=== PATIENT | male | born 1990 | race Caucasian/White ===

== ENCOUNTER 2016-02-01 00:01 | Inpatient (IN) | payer SELFPAY ==
[~2016-02-01] VITALS: Ht 170.2 cm; Wt 77.0 kg
--- NOTE | 2016-02-02 15:15 | NUR ---
NOTED GREEN, BILE LIKE, SUBSTANCE NOTED ON TOWEL AND PILLOW TO PT R SIDE. PT ROLLED TO R SIDE. PT BREATH SOUNDS COARSE. RESPITATIONS SHALLOW AND UNLABORED. PT VERY RELAXED AND ABLE TO MOVE EXTREMITIES WITHOUT ANY RESISTANCE NOTED.
--- NOTE | 2016-02-02 18:47 | NUR ---
1835 PT HAD ANOTHER EMESIS OF GREEN BILE ON TOWEL, CALL TO DR. SARKAR PAIN COORDINATOR FOR DR. Wali LARA. INFORMED OF EMESIS X 4, BILE APPEARANCE AND BILE SUCTIONED FROM TRACHE. REVIEWED CHANGES MADE 02/01/[address] SARKAR INSTRUCTED RN TO HOLD TF FOR 6 HR AFTER PRN REGLAN GIVEN, GIVE PRN REGLAN Q 8 HR PRN FOR EMESIS AND CALL [employer] ON THURSDAY TO REPORT PT CONDITION.
--- NOTE | 2016-02-02 18:51 | NUR ---
WITH ROUNDING AT 1745 PT NOTED TO HAVE VOMITED GREEN LIQUID AGAIN. TUBE FEEDING PUT ON HOLD. WITH TURNING OF PT HE WOULD VOMIT AGAIN. ATTEMPTED TO CLEAN MOUTH. PT COUGHED AND GREEN LIQUID CAME FROM TRACH. SUCTIONED AND TRACH CARES DONE.
--- NOTE | 2016-02-02 22:34 | NUR ---
2200; pt continues to have emesis of green bile appearing liquid. Suctioned x 2 light green mucus, Temp 99.2 A; small amount of yellow fluid from J tube site; Meds given; TF remains off per MD orders.
--- NOTE | 2016-02-03 02:16 | NUR ---
TF RESTARTED TF; NO EMESIS X 1 HOUR;
--- NOTE | 2016-02-06 23:02 | NUR ---
PT HAD COPIOUS AMOUNT OF WHITE FOAMY SECRETIONS, CONTINUES TO RUN FROM MOUTH AFTER SUCTIONING. GAVE ATROPINE DROPS AFTER ORAL CARES. SKIN ACROSS CHEST RED/RAISED BUMPS. NOTED A 4" X 2" RED BASSAM ON INNER ASPECT OF RIGHT LEG, AND RED LINES OF IRRITATION TO THE SKIN WITH A CIRCULAR RED AREA INNER ASPECT OF LEFT LEG.
--- NOTE | 2016-02-07 14:46 | NUR ---
I was notified by Ingrid Mckinley RN on the night guard that there was a red eh to the inner aspect of Dino's right leg and red lines of irritation to the skin with a circular red area on the inner aspect of the left leg. Ingrid reported that she thought it looked like a eh from the genoveva lift sling. I checked the area this morning and did not find any redness or lyn to either leg. Will continue to monitor the legs for s/s of sling difficulties.
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
--- NOTE | 2016-03-16 20:29 | NUR ---
COPIOUS AMOUNTS OF SECRETIONS, REQUIRED BED CHANGE. PT GASPING AND COUGHING REPOSITIONED AND CARES PROVIDED.
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
--- NOTE | 2016-11-01 00:57 | NUR ---
COMPUTER IN PT ROOM NOT WORKING ALL MEDS WERE FULL DOCUMENTED
== END 2016-11-08 18:18 | disposition short-term general hospital (02) | DRG 81 ==
LOC: SNU 00:01
PROVIDERS: ADMIT Family Medicine
PROC: F07M0ZZ Range of Motion and Joint Mobility Treatment of Musculoskeletal System - Whole Body (ICD-10-PCS; principal; 2016-02-01)
PROC: 5A1955Z Respiratory Ventilation, Greater than 96 Consecutive Hours (ICD-10-PCS; principal; 2016-02-01)
PROC: 0DHA3UZ Insertion of Feeding Device into Jejunum, Percutaneous Approach (ICD-10-PCS; 2016-03-06)
PROC: 3E0234Z Introduction of Serum, Toxoid and Vaccine into Muscle, Percutaneous Approach (ICD-10-PCS; 2016-04-12)
PROC: 0DHA3UZ Insertion of Feeding Device into Jejunum, Percutaneous Approach (ICD-10-PCS; 2016-09-20)
DX: R40.3 Persistent vegetative state (principal); Z99.11 Dependence on respirator [ventilator] status; R56.1 Post traumatic seizures; J96.10 Chronic respiratory failure, unspecified whether with hypoxia or hypercapnia; S06.9X6S Unspecified intracranial injury with loss of consciousness greater than 24 hours without return to pre-existing conscious level with patient surviving, sequela; Y24.9XXS Unspecified firearm discharge, undetermined intent, sequela; Z93.0 Tracheostomy status; Z23 Encounter for immunization; M24.50 Contracture, unspecified joint; M62.50 Muscle wasting and atrophy, not elsewhere classified, unspecified site; K64.4 Residual hemorrhoidal skin tags; R32 Unspecified urinary incontinence; Z93.1 Gastrostomy status; Z66 Do not resuscitate; Z74.01 Bed confinement status; Z86.14 Personal history of Methicillin resistant Staphylococcus aureus infection; Z16.24 Resistance to multiple antibiotics; Z86.11 Personal history of tuberculosis

== ENCOUNTER 2016-11-08 16:06 | Inpatient (IN) | payer OTHER ==
[~2016-11-08] VITALS: Ht 170.2 cm; Wt 73.3 kg
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
== END 2016-11-12 09:42 | DRG 871 ==
LOC: ER 16:06 → 3ICU 21:17 → 4PCU 21:17 → 3ICU 11-10 07:16 → 4PCU 11-10 11:35
PROVIDERS: ADMIT Internal Medicine
DX: A41.9 Sepsis, unspecified organism (principal); J96.01 Acute respiratory failure with hypoxia; R40.3 Persistent vegetative state; Z93.0 Tracheostomy status; T17.990A Other foreign object in respiratory tract, part unspecified in causing asphyxiation, initial encounter; S06.9X6S Unspecified intracranial injury with loss of consciousness greater than 24 hours without return to pre-existing conscious level with patient surviving, sequela; I95.9 Hypotension, unspecified; Y24.9XXS Unspecified firearm discharge, undetermined intent, sequela; K80.20 Calculus of gallbladder without cholecystitis without obstruction; Z93.1 Gastrostomy status; Z66 Do not resuscitate; Z74.01 Bed confinement status; Z16.30 Resistance to unspecified antimicrobial drugs; Z86.11 Personal history of tuberculosis

== ENCOUNTER 2016-11-12 09:28 | Inpatient (IN) | payer OTHER ==
[~2016-11-12] VITALS: Ht 170.2 cm; Wt 73.0 kg
--- NOTE | 2016-11-29 10:35 | NUR ---
PT HAD A LARGE AMT OF YELLOW -GREEN GRAINY EMESIS. LUNGS HAVE RHONCHI. COPIUS AMT OF CLEAR TO WHITE PHLEGM FROM TRACH. BED BATH GIVEN. TUBE FEEDING AND MEDS HELD AT THIS TIME.
--- NOTE | 2016-11-29 14:40 | NUR ---
PT AGAIN HAD A LARGE AMOUNT OF YELLOW GREEN GRAINY ENESIS. CALLED ANSWERING SERVICE TO INQUIRE IF THERE IS A DR CODING COMPLIANCE MANAGER FOR DR LARA. THERE IS NO ONE CODING COMPLIANCE MANAGER. NURSING SECOND MILLER CALLED AND DECISION WAS MAKE TO TRANSPORT TO ER. 911 CALLED AND ARRANGMENTS MADE FOR TRANSPORT. ER CHARGE NUSRSE CALLED AND IFORMED OF SITUATION. VS. 98.2 117 20 89% RA 178/78 1455 AMBULANCE HERE TO TRANSPORT TO ER
--- NOTE | 2016-11-29 14:58 | NUR ---
CALLED BROTHER JERZY TOLD OF SITUATION AND THAT HE NEEDED TO MEET THE PT IN ER. HE VOICED THAT HE WAS AT [facility] AND IT MAY BE 1-2 HOURS BEFORE HE COULD GET TO ER. STRONGLY ENCOURAGED HIM TO GO TO ER THE STAFF AT ER WOULD NEED TO TALK WITH HIM AND THAT SOME DECISIONS NEEDED TO BE MADE ABOUT THE SITUATION.
== END 2016-11-29 14:55 | disposition short-term general hospital (02) | DRG 945 ==
LOC: SNU 09:28
PROVIDERS: ADMIT Family Medicine
PROC: F07M0ZZ Range of Motion and Joint Mobility Treatment of Musculoskeletal System - Whole Body (ICD-10-PCS; principal; 2016-11-12)
DX: S06.9X6 Unspecified intracranial injury with loss of consciousness greater than 24 hours without return to pre-existing conscious level with patient surviving (principal); R40.3 Persistent vegetative state; J96.11 Chronic respiratory failure with hypoxia; R56.1 Post traumatic seizures; Y24.9XXD Unspecified firearm discharge, undetermined intent, subsequent encounter; K80.20 Calculus of gallbladder without cholecystitis without obstruction; Z93.0 Tracheostomy status; Z99.81 Dependence on supplemental oxygen; M24.50 Contracture, unspecified joint; M62.50 Muscle wasting and atrophy, not elsewhere classified, unspecified site; R32 Unspecified urinary incontinence; Z93.1 Gastrostomy status; Z66 Do not resuscitate; Z74.01 Bed confinement status; Z86.14 Personal history of Methicillin resistant Staphylococcus aureus infection; Z16.30 Resistance to unspecified antimicrobial drugs

== ENCOUNTER 2016-11-29 15:08 | Inpatient (IN) | payer OTHER ==
[~2016-11-29] VITALS: Ht 170.2 cm; Wt 73.5 kg
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
--- NOTE | 2016-12-07 20:44 | OR ---
ADMIT: 11/29/2016 RM/LOC: 422 [facility] MR#: [id number] [address] [address] ASIA DILLON [facility] [address] [address] [place], [place] [address] Operative/Delivery Room Report SEX: M AGE: 26 : 1990 SURGERY DATE: 12/06/2016 SURGEON: Royal Bautista MD PREOPERATIVE DIAGNOSIS: Cholelithiasis with cholecystitis. POSTOPERATIVE DIAGNOSIS: Severe acute cholecystitis. PROCEDURE PERFORMED: Laparoscopic cholecystectomy. CREDIT REPRESENTATIVE: CHATO Ly, whose assistance was necessary for laparoscopic visualization and tissue retraction. ANESTHESIA: General endotracheal. ESTIMATED BLOOD LOSS: 25 mL. DESCRIPTION OF PROCEDURE: The patient was taken to the operating room and placed supine on the operating room table. General anesthesia was established. The abdomen was prepped and draped in the standard surgical fashion. A 5 mm infraumbilical incision was made in the skin. The fascia was grasped with a Robin clamp, and a Veress needle was advanced into the peritoneal cavity. Carbon dioxide was used to insufflate to the abdomen to 15 mmHg pressure. The Veress needle was withdrawn, and a 5 mm Optiview trocar was placed. Next, an 11 mm subxiphoid port and two right lateral 5 mm ports were placed under visualization. The gallbladder was retracted cephalad. This was initially not even visualized because of complete inflammatory adhesions overlying this. These were carefully freed to expose the dome of the gallbladder. The dome was then retracted cephalad. Adhesions to the gallbladder edge, extending down to Calot's triangle were then carefully freed. This allowed exposure of the close triangle area completely. The cystic duct was skeletonized and the view of safety was obtained. The cystic duct was doubly clipped distally, singly clipped proximally, and divided. The cystic artery was skeletonized, doubly clipped proximally, singly clipped ADMIT: 11/29/2016 RM/LOC: 422 [facility] MR#: [id number] [address] [address] ASIA DILLON [facility] [address] [address] Operative/Delivery Room Report SEX: M AGE: 26 : 1990 distally, and divided. The gallbladder was then excised from the gallbladder fossa with Bovie cautery. This was placed in an EndoCatch bag and removed through the subxiphoid port site. The right upper quadrant was irrigated. There was no evidence of bleeding. No evidence of bile leak, and the clips remained intact on the cystic duct and artery. The ports were removed under visualization without evidence of bleeding. The fascial margin at the subxiphoid port site was approximated with 0 Vicryl suture and the suture passer. The abdomen was allowed to deflate. Skin edges were approximated with 4-0 Monocryl in a subcuticular fashion and Dermabond. Local anesthetic was injected at the incisions. Sponge, needle, and instrument counts were correct at the end of the case. The patient tolerated the procedure well and transferred to the recovery room area in stable condition. Royal Bautista MD/ taj JOB #: [id number] CC: Javed Ac MD, Attending Physician Javed Ac MD, Family Physician
--- NOTE | 2016-12-28 16:24 | DS ---
ADMIT: 11/29/2016 RM/LOC: 422 [facility] MR#: [id number] [address] [facility] [address] [place], [place] [address] ASIA DILLON [facility] [address] [place] [address] General Discharge Summary SEX: M AGE: 26 : 1990 ADMISSION DATE: 11/29/2016 DISCHARGE DATE: 12/09/2016 ADMITTING DIAGNOSIS: Sepsis secondary to chronic cholecystitis. DISCHARGE DIAGNOSIS: Sepsis secondary to chronic cholecystitis. SECONDARY DIAGNOSES: 1. Persistent vegetative state. 2. Seizure disorder. 3. Chronic tracheostomy. 4. Lactic acidosis. 5. Hypokalemia. 6. Physical debility. CONSULTATION: Supportive Care and General Surgery. PROCEDURE: Laparoscopic cholecystectomy on 12/06/2016. HISTORY OF PRESENT ILLNESS: The patient presented to the ER with a 24-hour history of vomiting and intolerance to tube feeds. He had no known fevers. His abdomen was soft and he was having regular bowel movements. He had no known sick contacts. His white blood cell count 15.6, and his lactic acid was 3.3. HOSPITAL COURSE: The patient was admitted and placed on empiric antibiotics of meropenem as he had a previous hospitalization with suspicion for gallbladder disease. He is also placed on empiric IV PPI as the vomitus was dark in color. His vomiting was quickly controlled with antiemetics, though he had a frequent cough with copious sputum production. CT was completed of his abdomen with an "unusual appearing" gallbladder with irregular wall thickness. Ultrasound was then completed and visualized the contracted gallbladder with cholelithiasis. HIDA scan was completed that had no definite gallbladder uptake, but could not exclude cholecystitis. Supportive Care was consulted, and in conversations with the family, they elected to continue to pursue the source of the sepsis and to complete surgical treatment if needed. The patient's brother is most active in his daily cares; however, his mother in [facility] was the primary decision maker, so she was contacted for consent. General Surgery was consulted tentatively as gallbladder was the source of his illness, but on 12/06, it was decided to undergo laparoscopic cholecystectomy. Pathology on the gallbladder returned as chronic cholecystectomy with cholelithiasis. Blood cultures, no growth to date throughout the hospitalization. The patient was deescalated from meropenem to IV Flagyl following the procedure. He is clinically improved and discharged back to the intermediate unit on 12/09/2016. MEDICATIONS AT DISCHARGE: 1. Phenobarbital 150 mg p.o. at bedtime. 2. Culturelle one cap per J-tube b.i.d. ADMIT: 11/29/2016 RM/LOC: 422 [facility] MR#: [id number] [address] [address] ASIA DILLON [facility] SKILLED UNIT [address] [place] [address] General Discharge Summary SEX: M AGE: 26 : 1990 3. Dilantin 300 mg per J-tube at bedtime. 4. Keppra 2500 mg per J-tube b.i.d. 5. Lioresal 15 mg per J-tube t.i.d. 6. Lopressor 50 mg per J-tube t.i.d. 7. Pepcid 20 mg per J-tube b.i.d. 8. Topamax 100 mg per J-tube b.i.d. 9. Tylenol 650 mg per J-tube q.4 hours p.r.n. pain. 10.Mucomyst 20% 4 mL inhaled q.6 hours p.r.n. 11.Naturale Tears one drop each eye q.i.d. p.r.n. 12.Phenergan with codeine 4 mL per J-tube q.4 hours p.r.n. 13.Dulcolax suppository 10 mg per rectum daily p.r.n. 14.Atropine 1%, three drops sublingual q.2 hours p.r.n. 15.Bacitracin 0.9 g topical p.r.n. 16.Cleocin gel topical b.i.d. p.r.n. 17.Mycostatin 15 g apply locally topically b.i.d. p.r.n. 18.Benadryl 25 mg per J-tube q.4 hours p.r.n. 19.Colace 100 mg per J-tube b.i.d. p.r.n. 20.Maalox 30 mg per J-tube q.6 hours p.r.n. 21.Milk of mag 10 mL per J-tube daily p.r.n. 22.Motrin 400 mg per J-tube q.6 hours p.r.n. 23.Debrox to each ear daily p.r.n. CONDITION AT DISCHARGE: Stable. DISPOSITION: Correction unit. FOLLOW UP: CBC and CMP to be completed in 1 week and follow up with Dr. Hancock on December 22 at 1415. Marleny Lopez MD Resident / Javed Ac MD / modl JOB #: [id number] CC: Javed Ac MD, Attending Physician Javed Ac MD, Family Physician
== END 2016-12-09 11:50 | DRG 853 ==
LOC: ER 15:08 → 4PCU 17:26
PROVIDERS: ADMIT Family Medicine
PROC: 0FT44ZZ Resection of Gallbladder, Percutaneous Endoscopic Approach (ICD-10-PCS; principal; 2016-12-06)
DX: A41.9 Sepsis, unspecified organism (principal); J96.21 Acute and chronic respiratory failure with hypoxia; R40.3 Persistent vegetative state; E87.2 Acidosis; Z93.0 Tracheostomy status; K80.10 Calculus of gallbladder with chronic cholecystitis without obstruction; Z99.81 Dependence on supplemental oxygen; R56.1 Post traumatic seizures; Y24.9XXD Unspecified firearm discharge, undetermined intent, subsequent encounter; S06.9X6 Unspecified intracranial injury with loss of consciousness greater than 24 hours without return to pre-existing conscious level with patient surviving; E87.6 Hypokalemia; M24.50 Contracture, unspecified joint; M62.50 Muscle wasting and atrophy, not elsewhere classified, unspecified site; R32 Unspecified urinary incontinence; Z93.1 Gastrostomy status; Z66 Do not resuscitate; Z74.01 Bed confinement status; Z86.14 Personal history of Methicillin resistant Staphylococcus aureus infection; Z16.30 Resistance to unspecified antimicrobial drugs

== ENCOUNTER 2016-12-09 10:51 | Inpatient (IN) | payer SELFPAY ==
[~2016-12-09] VITALS: Ht 170.2 cm; Wt 78.0 kg
== END 2016-12-22 02:45 | disposition short-term general hospital (02) | DRG 945 ==
LOC: SNU 10:51
PROVIDERS: ADMIT Family Medicine
PROC: F07M0ZZ Range of Motion and Joint Mobility Treatment of Musculoskeletal System - Whole Body (ICD-10-PCS; principal; 2016-12-09)
DX: S06.9X6 Unspecified intracranial injury with loss of consciousness greater than 24 hours without return to pre-existing conscious level with patient surviving (principal); J96.11 Chronic respiratory failure with hypoxia; R40.3 Persistent vegetative state; R56.1 Post traumatic seizures; Y24.9XXD Unspecified firearm discharge, undetermined intent, subsequent encounter; Z48.815 Encounter for surgical aftercare following surgery on the digestive system; Z93.0 Tracheostomy status; Z99.81 Dependence on supplemental oxygen; M24.50 Contracture, unspecified joint; M62.50 Muscle wasting and atrophy, not elsewhere classified, unspecified site; R32 Unspecified urinary incontinence; Z93.1 Gastrostomy status; Z66 Do not resuscitate; Z74.01 Bed confinement status; Z86.14 Personal history of Methicillin resistant Staphylococcus aureus infection; Z16.30 Resistance to unspecified antimicrobial drugs

== ENCOUNTER 2016-12-22 02:52 | Inpatient (IN) | payer OTHER ==
[~2016-12-22] VITALS: Ht 170.2 cm; Wt 79.0 kg
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
--- NOTE | 2016-12-24 08:56 | CO ---
ADMIT: 12/22/2016 RM/LOC: 420 [facility] MR#: [id number] [address] [facility] [address] [place], [place] [address] ASIA CURRY [facility] [address] [place], [place] [address] Consultation SEX: M AGE: 26 : 1990 DATE OF CONSULTATION: 12/22/2016 ATTENDING PHYSICIAN: Kartik Drake MD CONSULTING PHYSICIAN: Royal Bautista MD ADDENDUM: Mr. Curry was seen in consultation again for the fluid collection seen on CT scan. He is re-admitted with nausea and vomiting. I reviewed Antoine Amador's full dictated consult and I am in agreement with his documented physical exam findings, laboratory study review, CT scan review, and his assessment and plan. I have reviewed the HIDA scan to evaluate for any bile leak and there is no evidence of that. The small fluid collection seen on the CT scan clinically seems more consistent with a small hematoma given the severe inflammatory changes noted at the time of surgery. Given the small size of this continued conservative measures, we will allow hopeful resolution. I do not feel it is related to his current nausea and vomiting issues as that has likely been a more underlying chronic issue for him. I do not see other surgical pathology on the CT scan. I do think he presented with moderate dehydration and constipation. Royal Bautista MD/ modl JOB #: [id number] CC: Kartik Drake MD, Attending Physician Tyra Hancock MD, Family Physician
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
== END 2016-12-25 11:11 | DRG 391 ==
LOC: ER 02:52 → 4PCU 05:24
PROVIDERS: ADMIT Family Medicine
DX: R11.2 Nausea with vomiting, unspecified (principal); G82.50 Quadriplegia, unspecified; R40.3 Persistent vegetative state; R56.1 Post traumatic seizures; K59.00 Constipation, unspecified; E86.0 Dehydration; S06.9X6 Unspecified intracranial injury with loss of consciousness greater than 24 hours without return to pre-existing conscious level with patient surviving; S14.101D Unspecified injury at C1 level of cervical spinal cord, subsequent encounter; Y24.9XXD Unspecified firearm discharge, undetermined intent, subsequent encounter; E87.6 Hypokalemia; G93.0 Cerebral cysts; M24.50 Contracture, unspecified joint; Z93.0 Tracheostomy status; Z99.81 Dependence on supplemental oxygen; Z16.30 Resistance to unspecified antimicrobial drugs; Z93.1 Gastrostomy status; Z86.11 Personal history of tuberculosis; Z66 Do not resuscitate

== ENCOUNTER 2017-01-03 23:56 | Emergency (ER) | payer OTHER ==
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
== END 2017-01-04 02:35 | disposition home or self-care (01) ==
LOC: ER 23:56
DX: R11.2 Nausea with vomiting, unspecified (principal); Z88.1 Allergy status to other antibiotic agents; Z79.899 Other long term (current) drug therapy; Z93.1 Gastrostomy status; Z93.0 Tracheostomy status; A41.9 Sepsis, unspecified organism

== ENCOUNTER 2017-01-05 11:58 | Emergency (ER) | payer SELFPAY ==
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
== END 2017-01-05 14:40 | disposition home or self-care (01) ==
LOC: ER 11:58 → 5MS 12:30 → ER 12:30
DX: S06.9X9A Unspecified intracranial injury with loss of consciousness of unspecified duration, initial encounter (principal)